=== PATIENT | female | born 1990 | race Caucasian/White ===

== ENCOUNTER 2022-08-05 12:58 | Outpatient (CLI) | payer OTHER | END 2022-08-05 12:59 | disposition home or self-care (01) | LOC: BICCT 12:58 | PROVIDERS: ATTEND Ophthalmology | DX: H02.811 Retained foreign body in right upper eyelid (principal); H02.814 Retained foreign body in left upper eyelid | CPT/HCPCS: 70480 ==

== ENCOUNTER 2022-10-20 08:07 | Outpatient (CLI) | payer OTHER ==
[2022-10-20] MEDS ORDERED: EPINEPHrine 1 mg/ml MDV (1ml Charge) ONE (09:00)
[2022-10-20] MEDS ORDERED: Sodium Chloride 0.9% 50 ML BAG ONE (09:00)
[2022-10-20] MEDS ORDERED: Iopamidol 300 61% 100 ML VIAL FS ONE (09:00)
[2022-10-20] MEDS ORDERED: Lidocaine 1% PF 5 ML VIAL ONE (09:00)
== END 2022-10-20 08:08 | disposition home or self-care (01) ==
LOC: CT 08:07
PROVIDERS: ATTEND Orthopaedic Surgery
DX: S46.012A Strain of muscle(s) and tendon(s) of the rotator cuff of left shoulder, initial encounter (principal); S43.431A Superior glenoid labrum lesion of right shoulder, initial encounter; M79.89 Other specified soft tissue disorders
CPT/HCPCS: 23350; J0171; Q9967